=== PATIENT | male | born 1960 | race Caucasian/White ===

== ENCOUNTER 2020-04-20 21:00 | Emergency (ER) | payer MEDICAID ==
[~2020-04-20] VITALS: Ht 172.7 cm; Wt 100.0 kg
--- NOTE | 2020-04-20 21:10 | NUR ---
ERP AT BEDSIDE TO ASSESS PT AND DISCUSS POC
[2020-04-20] MEDS ORDERED: SODIUM CHLORIDE 0.9% 1,000ML IVBOLUS ONE (21:30)
[2020-04-20] MEDS ORDERED: SODIUM CHLORIDE FLUSH 10ML SYR IVF ONE (21:30)
[2020-04-20] MEDS ORDERED: LOPERAMIDE 2 MG CAPSULE PO ONE (21:30)
[2020-04-20] MEDS ORDERED: LOPERAMIDE 2 MG CAPSULE ONE (21:35)
--- NOTE | 2020-04-20 21:38 | NUR ---
PT MEDICATED PER MAR
[2020-04-20 21:44] LABS: BASOPHILS # (AUTO) 0.03 x10^3/uL (0-0.1); BASOPHILS % (AUTO) 1 % (0-1); EOSINOPHILS # (AUTO) 0.18 x10^3/uL (0-0.4); EOSINOPHILS % (AUTO) 3 % (1-7); LYMPHOCYTES # (AUTO) 1.29 x10^3/uL (1-3.4); LYMPHOCYTES % (AUTO) 23 % (22-44); MD NO; MEAN CORPUSCULAR HEMOGLOBIN 29.4 pg (27.5-34.5); MEAN CORPUSCULAR HGB CONC 32.8 g/dL (33.2-36.2); MEAN PLATELET VOLUME 8.4 fL (7.4-10.4); MONOCYTES # (AUTO) 0.72 x10^3/uL (0.2-0.8); MONOCYTES % (AUTO) 13 % (2-9); NEUTROPHILS # (AUTO) 3.52 x10^3/uL (1.8-6.8); NEUTROPHILS % (AUTO) 61 % (42-75); PLATELET COUNT 220 x10^3/uL (130-400); RED BLOOD COUNT 4.68 x10^6/uL (4.38-5.82); RED CELL DISTRIBUTION WIDTH 13.4 % (9.4-14.8)
[2020-04-20 21:48] LABS: ALANINE AMINOTRANSFERASE 37 U/L (12-78); ALBUMIN 3.4 g/dL (3.4-5.0); ANION GAP 4 mmol/L (5-15); CALCIUM 8.3 mg/dL (8.5-10.1); CHLORIDE 107 mmol/L (98-107); CREATININE 0.99 mg/dL (0.7-1.3)
[2020-04-20 21:50] LABS: ALKALINE PHOSPHATASE 92 U/L (45-117); BILIRUBIN,TOTAL 0.6 mg/dL (0.2-1.0); TOTAL PROTEIN 6.7 g/dL (6.4-8.2)
--- NOTE | 2020-04-20 22:00 | NUR ---
STILL NO STOOL SAMPLE PROVIDED, ERP AWARE
[2020-04-20 22:09] VITALS: BP 156/99
--- NOTE | 2020-04-20 22:10 | NUR ---
ALL RESULTS BACK AT THIS TIME, CHART UP FOR RECHECK
--- NOTE | 2020-04-20 22:58 | NUR ---
Patient/Caregiver given discharge instructions and they have confirmed that they understand the instructions. Patient ambulatory with steady gait. Piv dc prior to pt leaving facility
== END 2020-04-20 22:59 | disposition home or self-care (01) ==
LOC: ED 21:38
DX: R19.7 Diarrhea, unspecified (principal); E11.65 Type 2 diabetes mellitus with hyperglycemia; I10 Essential (primary) hypertension
CPT/HCPCS: 36415; 80053; 83690; 85025; 96360; 96361; 99283; J7030

== ENCOUNTER 2020-07-04 10:18 | Emergency (ER) | payer MEDICAID ==
[~2020-07-04] VITALS: Ht 170.2 cm; Wt 97.0 kg
--- NOTE | 2020-07-04 10:32 | NUR ---
post secondary professional note: EKG completed in triage, reviewed by RAJNI Hill.
--- NOTE | 2020-07-04 11:33 | NUR ---
DEBURRER MACHINE: CALLED FOR ROOM, NO ANSWER
--- NOTE | 2020-07-04 11:45 | NUR ---
TELEGRAPH OPERATOR: CALLED FOR ROOM , NO ANSWER
--- NOTE | 2020-07-04 12:44 | NUR ---
NETWORK SYSTEMS CONSULTANT: PT TO ROOM FROM VADIM DICKERSON.
--- NOTE | 2020-07-04 13:00 | NUR ---
PT HERE FOR "CLEAN BILL OF HEALTH SO I CAN RETURN TO WORK" PT WITH MULTIPLE COMPLAINTS, URINARY FREQUENCY AND OCCASIONAL INCONTINENCE. SOME SOB WITH DRY COUGH BEGINNING THIS AM, PT DENIES FEVERS/SICK CONTACTS. PT HAD SOME DIARRHEA A FEW DAYS AGO, BUT STATES THIS HAS CLEARED UP. PT ALSO WITH SOME LIGHT HEADINESS OVER THE LAST FOUR DAYS, PT NOT CURRENLTY LIGHT HEADED. PT TO CONT PULSE OX, BP.
[2020-07-04 13:20] LABS: BASOPHILS # (AUTO) 0.01 x10^3/uL (0-0.1); BASOPHILS % (AUTO) 0 % (0-1); EOSINOPHILS # (AUTO) 0.15 x10^3/uL (0-0.4); EOSINOPHILS % (AUTO) 2 % (1-7); LYMPHOCYTES # (AUTO) 1.18 x10^3/uL (1-3.4); LYMPHOCYTES % (AUTO) 15 % (22-44); MD NO; MEAN CORPUSCULAR HEMOGLOBIN 28.9 pg (27.5-34.5); MEAN CORPUSCULAR HGB CONC 32.9 g/dL (33.2-36.2); MEAN PLATELET VOLUME 8.1 fL (7.4-10.4); MONOCYTES # (AUTO) 0.65 x10^3/uL (0.2-0.8); MONOCYTES % (AUTO) 8 % (2-9); NEUTROPHILS # (AUTO) 5.97 x10^3/uL (1.8-6.8); NEUTROPHILS % (AUTO) 75 % (42-75); PLATELET COUNT 264 x10^3/uL (130-400); RED BLOOD COUNT 4.96 x10^6/uL (4.38-5.82); RED CELL DISTRIBUTION WIDTH 13.3 % (9.4-14.8)
[2020-07-04 13:34] LABS: ALBUMIN 3.5 g/dL (3.4-5.0); ANION GAP 5 mmol/L (5-15); CHLORIDE 104 mmol/L (98-107); CREATININE 1.32 mg/dL (0.7-1.3)
[2020-07-04 14:10] VITALS: BP 172/89
[2020-07-04 14:34] LABS: MICROSCOPIC NOT IND
== END 2020-07-04 16:03 | disposition home or self-care (01) ==
LOC: ED 14:40
DX: E11.65 Type 2 diabetes mellitus with hyperglycemia (principal); R53.1 Weakness; R05 Cough; R11.2 Nausea with vomiting, unspecified; R19.7 Diarrhea, unspecified; R06.02 Shortness of breath; R06.9 Unspecified abnormalities of breathing; E11.9 Type 2 diabetes mellitus without complications; I10 Essential (primary) hypertension
CPT/HCPCS: 36415; 71045; 80048; 81003; 82040; 85025; 93005; 99285

== ENCOUNTER 2021-01-28 12:02 | Emergency (ER) | payer MEDICAID ==
[~2021-01-28] VITALS: Ht 170.2 cm; Wt 96.3 kg
--- NOTE | 2021-01-28 12:24 | NUR ---
Pt ambulatory to room, changing into gown now. Pants held up by bungee cable, but clothing appears clean and pt appears well-groomed. No s/s Covid, but states increased SOB with dry coughing mostly at night and cannot lay on his back for the last 2 weeks due to this. Pt states loss of sleep due to positioning concerns with this c/o.
[2021-01-28] MEDS ORDERED: GLIP5TAB10 PO (12:42)
[2021-01-28] MEDS ORDERED: METF500S5 PO (12:42)
--- NOTE | 2021-01-28 13:02 | NUR ---
Tech at bedside for EKG. INSURANCE AGENCY SALES MANAGER states no IV needed at this time.
--- NOTE | 2021-01-28 13:10 | NUR ---
PCXR being done now.
[2021-01-28 13:29] LABS: BASOPHILS % (AUTO) 1 % (0-1); EOSINOPHILS % (AUTO) 3 % (1-7); LYMPHOCYTES % (AUTO) 19 % (22-44); MD NO; MEAN CORPUSCULAR HEMOGLOBIN 29.7 pg (27.5-34.5); MEAN CORPUSCULAR HGB CONC 34.9 g/dL (33.2-36.2); MEAN PLATELET VOLUME 7.2 fL (7.4-10.4); MONOCYTES % (AUTO) 11 % (2-9); NEUTROPHILS % (AUTO) 66 % (42-75); PLATELET COUNT 253 x10^3/uL (130-400); RED BLOOD COUNT 5.51 x10^6/uL (4.38-5.82); RED CELL DISTRIBUTION WIDTH 12.8 % (9.4-14.8)
[2021-01-28 13:43] LABS: ALANINE AMINOTRANSFERASE 50 U/L (12-78); ALBUMIN 3.7 g/dL (3.4-5.0); ANION GAP 8 mmol/L (5-15); CALCIUM 9.4 mg/dL (8.5-10.1); CHLORIDE 104 mmol/L (98-107); CREATININE 0.94 mg/dL (0.7-1.3)
[2021-01-28 13:47] LABS: ALKALINE PHOSPHATASE 112 U/L (45-117); BILIRUBIN,TOTAL 0.4 mg/dL (0.2-1.0); TOTAL PROTEIN 7.5 g/dL (6.4-8.2)
--- NOTE | 2021-01-28 14:42 | NUR ---
Pt reassessed, results reviewed and MD at bedside to discuss findings and plan of care.
--- NOTE | 2021-01-28 15:05 | NUR ---
Report given to meal break RN and care transferred.
[2021-01-28 15:25] VITALS: BP 124/79
--- NOTE | 2021-01-28 15:26 | NUR ---
BREAK RN: PT SITTING UP IN BED. VS STABLE. NO ACUTE DISTRESS NOTED. CALL LIGHT IN PLACE. WILL CONTINUE TO MONITOR WHILE PRIMARY RN IS ON BREAK .
--- NOTE | 2021-01-28 15:36 | NUR ---
LOWELL YEE: REPORT GIVEN TO NAKIA MCMILLAN
--- NOTE | 2021-01-28 15:42 | NUR ---
Report received and care reassumed. Reported that pt will be admitted today for monitoring.
== END 2021-01-28 16:24 | disposition home or self-care (01) ==
LOC: ED 16:05
DX: B34.9 Viral infection, unspecified (principal); Z20.822 Contact with and (suspected) exposure to COVID-19; I44.4 Left anterior fascicular block; R00.0 Tachycardia, unspecified; I21.9 Acute myocardial infarction, unspecified; I11.9 Hypertensive heart disease without heart failure; R94.31 Abnormal electrocardiogram [ECG] [EKG]; E11.9 Type 2 diabetes mellitus without complications; Z87.891 Personal history of nicotine dependence
CPT/HCPCS: 36415; 71045; 80053; 83880; 85025; 93005; 99285; U0003